=== PATIENT | female | born 1995 | race African-American/Black ===

== ENCOUNTER 2016-08-11 09:08 | Emergency (ER) | payer BC ==
[~2016-08-11] VITALS: Ht 165.1 cm; Wt 49.4 kg
[~2016-08-11 09:08] MED LIST: IBUP1CAP PO
[2016-08-11 09:14] VITALS: TEMP 36.9; Ht 165.1 cm; Wt 49.4 kg
[2016-08-11] MEDS ORDERED: SODIUM CHLORIDE 0.9% 1000ML 1,000 ML IV STA (09:38)
[2016-08-11 09:42] LABS: HEMATOCRIT 37.3 % (37-47); MEAN CELL VOLUME 89.4 fL (80-100); MEAN CORPUSCULAR HEMOGLOBIN 31.2 pg (25-34); MEAN CORPUSCULAR HGB CONC 34.9 g/dl (32-36); MEAN PLATELET VOLUME 10.1 fL (7.4-10.4); PLATELET COUNT 240 K/uL (130-400); RED BLOOD COUNT 4.17 M/uL (4.2-5.4); WHITE BLOOD COUNT 24.07 K/uL (4.8-10.8)
--- NOTE | 2016-08-11 09:53 | EMERGENCY ROOM VISIT NOTE ---
History First contact with patient: :20 Chief Complaint: ABDOMINAL PAIN Stated Complaint: ABD PAIN Nursing Triage Summary: pt. has had abdominal pain for the past 4 days, was sent home from school on thursday, pt. states she passed out and awoke on the kitchen floor, does not know how she had fallen or if she had fallen, has pain on the back of her head, states her abdominal pain is like cramping, denies nausea History of Present Illness The patient is a 20 year old female who presents to the Emergency Room with complaints of abdominal pain. She reports 4 day hx of abdominal pain and diarrhea since day before arrival. Pain is constant 8-9/10. no aggravating factors. She tried Ibuprofen which gave her minimal relief. She also reports dizziness, lightheadedness, chills, increased urinary frequency and urgency, Patient reports episode of LOC day before arrival. She states she went to bathroom and ended up on floor. Fall was unwitnessed. Review of Systems See HPI for pertinent positives & negatives. A total of 10 systems reviewed and were otherwise negative. Past Medical/Surgical History Medical Problems: (1) No Known Active Medical Problems Social History Smoking Status: Never Smoker Current/Historical Medications Scheduled Amoxicillin & Pot Clavulanate (Augmentin 875-125 mg), 1 TAB PO BID Fluticasone Propionate (Nasal) (Flonase Allergy Relief), 1 SPRAY JULIA BID Metronidazole (Flagyl), 500 MG PO TID Allergies Coded Allergies: No Known Allergies (Unverified , 08/11/16) Physical Exam Vital Signs Date Time Temp Pulse Resp B/P Pulse Ox O2 Delivery O2 Flow Rate FiO2 08/11/16 13:32 95 14 114/59 99 Room Air 08/11/16 11:37 97 13 111/73 100 Room Air 08/11/16 10:25 86 12 116/88 100 Room Air 08/11/16 09:51 88 114/71 92 111/72 107 126/73 08/11/16 09:14 36.9 100 16 127/89 100 Room Air Physical Exam GENERAL: alert mild-mod. distress, non-toxic EYE EXAM: normal conjunctiva, PERRL and EOM's grossly intact OROPHARYNX: no exudate, no erythema, lips, buccal mucosa, and tongue normal and mucous membranes are moist NECK: supple, no nuchal rigidity, no adenopathy, non-tender LUNGS: Clear to auscultation. Normal chest wall mechanics HEART: no murmurs, S1 normal and S2 normal ABDOMEN: abdomen soft, diffusely tender, worst in RLQ, Epigastrium , normo- active bowel sounds, no masses, no rebound or guarding. BACK: Back is symmetrical on inspection and there is no deformity, no midline tenderness, no CVA tenderness. SKIN: no rashes and no bruising UPPER EXTREMITIES: upper extremities are grossly normal. LOWER EXTREMITIES: No pitting edema. NEURO EXAM: Normal sensorium, cranial nerves II-XII grossly intact, normal speech, no gross weakness of arms, no gross weakness of legs. Medical Decision & Procedures ER Provider Diagnostic Interpretation: CT OF THE ABDOMEN AND PELVIS WITH CONTRAST CLINICAL HISTORY: Abdominal pain and diarrhea. Syncope. COMPARISON STUDY: None. TECHNIQUE: Following IV administration of 88 mL of Optiray-320, axial images of the abdomen and pelvis were obtained from the lung bases to the proximal femurs. Images were reviewed in the axial, sagittal, and coronal planes. IV contrast was administered without complication. Oral contrast was administered. CT DOSE: 817.16 mGy.cm FINDINGS: No pneumatosis, free air or portal venous gas is present. There are suspected layering stones within the gallbladder. The liver, spleen, adrenal glands and kidneys are normal. There is no evidence for a bowel obstruction. The appendix is normal. There is mild to moderate colonic wall thickening. There is trace fluid within the pelvis. A 3.5 cm right ovarian cyst is present. Skeletal structures are unremarkable. IMPRESSION: 1. Mild to moderate wall thickening of the entire colon consistent with a pancolitis. This is likely infectious in etiology although an inflammatory etiology could appear similar. 2. Normal appendix. 3. 3.5 cm right ovarian cyst. 4. Stones or sludge within the gallbladder. Laboratory Results 08/11/16 09:22 Red Blood Count 4.17, Mean Corpuscular Volume 89.4, Mean Corpuscular Hemoglobin 31.2, Mean Corpuscular Hemoglobin Concent 34.9, Mean Platelet Volume 10.1, Neutrophils (%) (Auto) 88.7, Lymphocytes (%) (Auto) 3.5, Monocytes (%) (Auto) 6.4, Eosinophils (%) (Auto) 0.1, Basophils (%) (Auto) 0.1, Neutrophils # (Auto) 21.34, Lymphocytes # (Auto) 0.85, Monocytes # (Auto) 1.55, Eosinophils # (Auto) 0.02, Basophils # (Auto) 0.02 08/11/16 09:22 Test 08/11/16 09:22 08/11/16 09:40 White Blood Count 24.07 K/uL (4.8-10.8) Red Blood Count 4.17 M/uL (4.2-5.4) Hemoglobin 13.0 g/dL (12.0-16.0) Hematocrit 37.3 % (37-47) Mean Corpuscular Volume 89.4 fL (80-100) Mean Corpuscular Hemoglobin 31.2 pg (25-34) Mean Corpuscular Hemoglobin Concent 34.9 g/dl (32-36) Platelet Count 240 K/uL (130-400) Mean Platelet Volume 10.1 fL (7.4-10.4) Neutrophils (%) (Auto) 88.7 % Lymphocytes (%) (Auto) 3.5 % Monocytes (%) (Auto) 6.4 % Eosinophils (%) (Auto) 0.1 % Basophils (%) (Auto) 0.1 % Neutrophils # (Auto) 21.34 K/uL (1.4-6.5) Lymphocytes # (Auto) 0.85 K/uL (1.2-3.4) Monocytes # (Auto) 1.55 K/uL (0.11-0.59) Eosinophils # (Auto) 0.02 K/uL (0-0.5) Basophils # (Auto) 0.02 K/uL (0-0.2) RDW Standard Deviation 41.5 fL (36.4-46.3) RDW Coefficient of Variation 12.7 % (11.5-14.5) Immature Granulocyte % (Auto) 1.2 % Immature Granulocyte # (Auto) 0.29 K/uL (0.00-0.02) Anion Gap 9.0 mmol/L (3-11) Est Creatinine Clear Calc Drug Dose 91.6 ml/min Estimated GFR () 129.7 Estimated GFR (Non- 111.9 BUN/Creatinine Ratio 14.4 (10-20) Calcium Level 9.1 mg/dl (8.5-10.1) Total Bilirubin 0.5 mg/dl (0.2-1) Direct Bilirubin 0.1 mg/dl (0-0.2) Aspartate Amino Transf (AST/SGOT) 18 U/L (15-37) Alanine Aminotransferase (ALT/SGPT) 21 U/L (12-78) Alkaline Phosphatase 81 U/L (45-117) Total Protein 7.8 gm/dl (6.4-8.2) Albumin 3.7 gm/dl (3.4-5.0) Lipase 71 U/L (73-393) Urine Color YELLOW Urine Appearance CLEAR (CLEAR) Urine pH 6.0 (4.5-7.5) Urine Specific [place] 1.023 (1.000-1.030) Urine Protein 1+ (NEG) Urine Glucose (UA) NEG (NEG) Urine Ketones 1+ (NEG) Urine Occult Blood NEG (NEG) Urine Nitrite NEG (NEG) Urine Bilirubin NEG (NEG) Urine Urobilinogen NEG (NEG) Urine Leukocyte Esterase NEG (NEG) Urine WBC (Auto) 1-5 /hpf (0-5) Urine RBC (Auto) 0-4 /hpf (0-4) Urine Hyaline Casts (Auto) 1-5 /lpf (0-5) Urine Epithelial Cells (Auto) >30 /lpf (0-5) Urine Bacteria (Auto) NEG (NEG) Urine Renal Epithelial Cells /lpf (0-5) Urine Mucus PRESENT (NONE PRSENT) Urine Test NEG (NEG) Date/Time Source Procedure Growth Status 08/11/16 11:00 Stool C.difficile Toxin B Gene (PCR) - Final Positive for C. difficile toxin B gene Complete Medications Administered Medications (Trade) Dose Ordered Sig/David Route Start Time Stop Time Status Last Admin Dose Admin Sodium Chloride (Nss 1000ml) 1,000 ml @ 999 mls/hr Q1H1M STAT IV 08/11/16 09:38 08/11/16 10:38 DC 08/11/16 09:49 999 MLS/HR Medical Decision Differential diagnoses includes but is not limited to gastritis, peptic ulcer disease, GERD, gallbladder disease, pancreatitis, small bowel obstruction, acute coronary syndrome, pericarditis, ischemic bowel, irritable bowel disease, irritable bowel syndrome, appendicitis, diverticulitis, malignancy, hernia, urinary tract infection, torsion, /ectopic if female, perforation, trauma, infectious. 20 yo F p/w epigastric pain x 4 days, diarrhea urinary urgency/frequency and dizziness and episode of LOC, diffuse abdominal tenderness on exam. -CBC: unremarkable -BMP: unremarkable -LFT: unremarkable -UA: negative -Lipase negative -Stool C. Difficile Antigen POSITIVE -CT Abdomen/Pelvis: Mild to moderate wall thickening of the entire colon consistent with a pancolitis. infectious vs. inflammatory etiology -Given 1 L NS -Patient refuses pain medication -Based on patient's presentation of abdominal pain and diarrhea, Hx of recent abx use, positive c diff in stool and CT abdomen consistent with pancolitis, C diff colitis is the most likely etiology. Patient's dizziness/Syncopal episode likely due to Dehydration in the setting of diarrhea. Patient orthostatic pulses changes. Patient was discharged with follow up to PCP and PO Metronidazole 500 mg TD x 14 days. Patient was given first dose of COTA in the ED Impression Primary Impression: Acute abdominal pain Departure Information Dispostion Home / Self-Care Condition GOOD Prescriptions Metronidazole (Flagyl) 250 Mg Tab 500 MG PO TID for 14 Days, #84 TAB Prov: Alfred Sanabria, 08/11/16 Referrals No Doctor, Assigned (PCP) Patient Instructions My [facility] Resident Tracking Resident Involvement: Resident Care Provided Care Provided: Adult ED
[2016-08-11 09:59] LABS: BUN/CREATININE RATIO 14.4 (10-20); CALCIUM 9.1 mg/dl (8.5-10.1); CREATININE 0.77 mg/dl (0.60-1.20); POTASSIUM 3.7 mmol/L (3.5-5.1)
[2016-08-11 10:05] LABS: URINE APPEARANCE CLEAR (CLEAR); URINE BILIRUBIN NEG (NEG); URINE COLOR YELLOW; URINE EPITHELIAL CELL AUTO >30 /lpf (0-5); URINE NITRITE NEG (NEG); URINE SPECIFIC GRAVITY 1.023 (1.000-1.030); UROBILINOGEN NEG (NEG); ZZUR CULT IF INDIC CLEAN CATCH NO
[2016-08-11 10:06] LABS: MANUAL MICROSCOPIC REQUIRED? NO; REVIEW REQ? YES
[2016-08-11 10:06] LABS: BASO % 0.1 %; BASO ABS # 0.02 K/uL (0-0.2); COMPLETE YES; EOS % 0.1 %; IG% 1.2 %; LYMPH % 3.5 %; LYMPH ABS # 0.85 K/uL (1.2-3.4); MONO % 6.4 %; NEUT % 88.7 %
[2016-08-11] MEDS ORDERED: AMOX875T PO (10:15)
[2016-08-11] MEDS ORDERED: FLUT0.15 NAE (10:15)
[2016-08-11 10:19] LABS: URINE MUCUS PRESENT (NONE PRSENT)
--- NOTE | 2016-08-11 12:48 | DIAGNOSTIC IMAGING REPORT ---
CT OF THE HEAD WITHOUT CONTRAST CLINICAL HISTORY: Syncope. Headache. COMPARISON STUDY: No previous studies for comparison. CT DOSE: TECHNIQUE: Helical axial images of the head were obtained without IV contrast. Automated exposure control was utilized for the study. FINDINGS: No acute intracranial hemorrhage, midline shift or mass effect is present. Ventricular system is normal. Basilar cisterns are patent. There are no extra-axial collections. Pulido-white differentiation is maintained. There is no calvarial fracture. IMPRESSION: 1. No acute intracranial findings. 2. No calvarial fracture. Electronically signed by: Parth Bazzi M.D. 08/11/2016 12:46 PM Dictated Date/Time: 08/11/2016 12:44 PM
--- NOTE | 2016-08-11 13:40 | DIAGNOSTIC IMAGING REPORT ---
CT OF THE ABDOMEN AND PELVIS WITH CONTRAST CLINICAL HISTORY: Abdominal pain and diarrhea. Syncope. COMPARISON STUDY: None. TECHNIQUE: Following IV administration of 88 mL of Optiray-320, axial images of the abdomen and pelvis were obtained from the lung bases to the proximal femurs. Images were reviewed in the axial, sagittal, and coronal planes. IV contrast was administered without complication. Oral contrast was administered. CT DOSE: 817.16 mGy.cm FINDINGS: No pneumatosis, free air or portal venous gas is present. There are suspected layering stones within the gallbladder. The liver, spleen, adrenal glands and kidneys are normal. There is no evidence for a bowel obstruction. The appendix is normal. There is mild to moderate colonic wall thickening. There is trace fluid within the pelvis. A 3.5 cm right ovarian cyst is present. Skeletal structures are unremarkable. IMPRESSION: 1. Mild to moderate wall thickening of the entire colon consistent with a pancolitis. This is likely infectious in etiology although an inflammatory etiology could appear similar. 2. Normal appendix. 3. 3.5 cm right ovarian cyst. 4. Stones or sludge within the gallbladder. Electronically signed by: Parth Bazzi M.D. 08/11/2016 1:38 PM Dictated Date/Time: 08/11/2016 1:32 PM
[2016-08-11] MEDS ORDERED: METRONIDAZOLE 250 MG TAB PO STA (13:44)
[2016-08-11] MEDS ORDERED: METR1TAB4 PO (13:44)
[2016-08-11 14:35] VITALS: BP 114/67; PULSE 104; O2SAT 99
--- NOTE | 2016-08-11 15:46 | EMERGENCY ROOM VISIT NOTE ---
History Report prepared by Mahnaz: Sumanth Simon Under the Supervision of: Dr. Alfred Sanabria D.O. First contact with patient: 09:19 Chief Complaint: ABDOMINAL PAIN Stated Complaint: ABD PAIN Nursing Triage Summary: pt. has had abdominal pain for the past 4 days, was sent home from school on thursday, pt. states she passed out and awoke on the kitchen floor, does not know how she had fallen or if she had fallen, has pain on the back of her head, states her abdominal pain is like cramping, denies nausea History of Present Illness The patient is a 20 year old female who presents to the Emergency Room with complaints of persistent abdominal discomfort that started 3 days ago. The discomfort is mostly in the middle of her upper abdomen. The patient notes at first she had a headache and felt dizzy before her stomach started to hurt. She also complains of diarrhea that started yesterday and notes multiple episodes. The patient had one episode of passing out yesterday. She was going to the restroom, felt like the room was spinning, and woke up on the floor. She notes that she thinks she hit her head when she fell down. The patient also complained of some shortness of breath this morning that is somewhat resolved upon her arrival at the ED. The patient denies swelling in her calves, recent surgeries, or recent travels. Pt denies change in vision, fevers, chest pain, nausea, vomiting, pain with urination, blood in her stool, and melena. She has recently been on Augmentin. Source of History: patient Onset: 3 days ago Position: abdomen Timing: other (persistent) Associated Symptoms: + LOC, + SOB, + diarrhea, + headache, No chest pain, No fevers, No melena, No nausea, No urinary symptoms, No vomiting Note: Other associated symptoms: dizzy Denies: changes in vision, swelling in her calves, recent travel/ surgery, blood in her stool Review of Systems See HPI for pertinent positives & negatives. A total of 10 systems reviewed and were otherwise negative. Past Medical & Surgical Medical Problems: (1) No Known Active Medical Problems Family History No pertinent family history Social History Smoking Status: Never Smoker Housing Status: lives with roommate Occupation Status: student Current/Historical Medications Scheduled Amoxicillin & Pot Clavulanate (Augmentin 875-125 mg), 1 TAB PO BID Fluticasone Propionate (Nasal) (Flonase Allergy Relief), 1 SPRAY JULIA BID Metronidazole (Flagyl), 500 MG PO TID Allergies Coded Allergies: No Known Allergies (Unverified , 08/11/16) Physical Exam Vital Signs Date Time Temp Pulse Resp B/P Pulse Ox O2 Delivery O2 Flow Rate FiO2 08/11/16 14:35 104 13 114/67 99 08/11/16 13:32 95 14 114/59 99 Room Air 08/11/16 11:37 97 13 111/73 100 Room Air 08/11/16 10:25 86 12 116/88 100 Room Air 08/11/16 09:51 88 114/71 92 111/72 107 126/73 08/11/16 09:14 36.9 100 16 127/89 100 Room Air Physical Exam GENERAL: sitting up in bed, alert, well appearing, well nourished, no distress, non-toxic HEAD: Minimal tenderness to occiput. EYE EXAM: normal conjunctiva, PERRL and EOM's grossly intact OROPHARYNX: no exudate, no erythema, lips, buccal mucosa, and tongue normal and mucous membranes are moist NECK: supple, no nuchal rigidity, no adenopathy, non-tender LUNGS: Clear to auscultation. Normal chest wall mechanics HEART: no murmurs, S1 normal and S2 normal ABDOMEN: abdomen soft, diffusely tender to palpation, normo-active bowel sounds , no masses, no rebound or guarding. BACK: Back is symmetrical on inspection and there is no deformity, no midline tenderness, no CVA tenderness. SKIN: no rashes and no bruising UPPER EXTREMITIES: upper extremities are grossly normal. LOWER EXTREMITIES: No pitting edema. NEURO EXAM: Normal sensorium, cranial nerves II-XII intact, normal speech, no weakness of arms, no weakness of legs. No drift. Finger to nose intact. Gross sensation intact. Medical Decision & Procedures ER Provider Diagnostic Interpretation: Radiology results as stated below per my review and the radiologist's interpretation: CT OF THE ABDOMEN AND PELVIS WITH CONTRAST CLINICAL HISTORY: Abdominal pain and diarrhea. Syncope. COMPARISON STUDY: None. TECHNIQUE: Following IV administration of 88 mL of Optiray-320, axial images of the abdomen and pelvis were obtained from the lung bases to the proximal femurs. Images were reviewed in the axial, sagittal, and coronal planes. IV contrast was administered without complication. Oral contrast was administered. CT DOSE: 817.16 mGy.cm FINDINGS: No pneumatosis, free air or portal venous gas is present. There are suspected layering stones within the gallbladder. The liver, spleen, adrenal glands and kidneys are normal. There is no evidence for a bowel obstruction. The appendix is normal. There is mild to moderate colonic wall thickening. There is trace fluid within the pelvis. A 3.5 cm right ovarian cyst is present. Skeletal structures are unremarkable. IMPRESSION: 1. Mild to moderate wall thickening of the entire colon consistent with a pancolitis. This is likely infectious in etiology although an inflammatory etiology could appear similar. 2. Normal appendix. 3. 3.5 cm right ovarian cyst. 4. Stones or sludge within the gallbladder. Electronically signed by: Parth Bazzi M.D. 08/11/2016 1:38 PM Dictated Date/Time: 08/11/2016 1:[address] OF THE HEAD WITHOUT CONTRAST CLINICAL HISTORY: Syncope. Headache. COMPARISON STUDY: No previous studies for comparison. CT DOSE: TECHNIQUE: Helical axial images of the head were obtained without IV contrast. Automated exposure control was utilized for the study. FINDINGS: No acute intracranial hemorrhage, midline shift or mass effect is present. Ventricular system is normal. Basilar cisterns are patent. There are no extra-axial collections. Pulido-white differentiation is maintained. There is no calvarial fracture. IMPRESSION: 1. No acute intracranial findings. 2. No calvarial fracture. Electronically signed by: Parth Bazzi M.D. 08/11/2016 12:46 PM Dictated Date/Time: 08/11/2016 12:44 PM Laboratory Results 08/11/16 09:22 Red Blood Count 4.17, Mean Corpuscular Volume 89.4, Mean Corpuscular Hemoglobin 31.2, Mean Corpuscular Hemoglobin Concent 34.9, Mean Platelet Volume 10.1, Neutrophils (%) (Auto) 88.7, Lymphocytes (%) (Auto) 3.5, Monocytes (%) (Auto) 6.4, Eosinophils (%) (Auto) 0.1, Basophils (%) (Auto) 0.1, Neutrophils # (Auto) 21.34, Lymphocytes # (Auto) 0.85, Monocytes # (Auto) 1.55, Eosinophils # (Auto) 0.02, Basophils # (Auto) 0.02 08/11/16 09:22 Test 08/11/16 09:22 08/11/16 09:40 White Blood Count 24.07 K/uL (4.8-10.8) Red Blood Count 4.17 M/uL (4.2-5.4) Hemoglobin 13.0 g/dL (12.0-16.0) Hematocrit 37.3 % (37-47) Mean Corpuscular Volume 89.4 fL (80-100) Mean Corpuscular Hemoglobin 31.2 pg (25-34) Mean Corpuscular Hemoglobin Concent 34.9 g/dl (32-36) Platelet Count 240 K/uL (130-400) Mean Platelet Volume 10.1 fL (7.4-10.4) Neutrophils (%) (Auto) 88.7 % Lymphocytes (%) (Auto) 3.5 % Monocytes (%) (Auto) 6.4 % Eosinophils (%) (Auto) 0.1 % Basophils (%) (Auto) 0.1 % Neutrophils # (Auto) 21.34 K/uL (1.4-6.5) Lymphocytes # (Auto) 0.85 K/uL (1.2-3.4) Monocytes # (Auto) 1.55 K/uL (0.11-0.59) Eosinophils # (Auto) 0.02 K/uL (0-0.5) Basophils # (Auto) 0.02 K/uL (0-0.2) RDW Standard Deviation 41.5 fL (36.4-46.3) RDW Coefficient of Variation 12.7 % (11.5-14.5) Immature Granulocyte % (Auto) 1.2 % Immature Granulocyte # (Auto) 0.29 K/uL (0.00-0.02) Anion Gap 9.0 mmol/L (3-11) Est Creatinine Clear Calc Drug Dose 91.6 ml/min Estimated GFR () 129.7 Estimated GFR (Non- 111.9 BUN/Creatinine Ratio 14.4 (10-20) Calcium Level 9.1 mg/dl (8.5-10.1) Total Bilirubin 0.5 mg/dl (0.2-1) Direct Bilirubin 0.1 mg/dl (0-0.2) Aspartate Amino Transf (AST/SGOT) 18 U/L (15-37) Alanine Aminotransferase (ALT/SGPT) 21 U/L (12-78) Alkaline Phosphatase 81 U/L (45-117) Total Protein 7.8 gm/dl (6.4-8.2) Albumin 3.7 gm/dl (3.4-5.0) Lipase 71 U/L (73-393) Urine Color YELLOW Urine Appearance CLEAR (CLEAR) Urine pH 6.0 (4.5-7.5) Urine Specific [place] 1.023 (1.000-1.030) Urine Protein 1+ (NEG) Urine Glucose (UA) NEG (NEG) Urine Ketones 1+ (NEG) Urine Occult Blood NEG (NEG) Urine Nitrite NEG (NEG) Urine Bilirubin NEG (NEG) Urine Urobilinogen NEG (NEG) Urine Leukocyte Esterase NEG (NEG) Urine WBC (Auto) 1-5 /hpf (0-5) Urine RBC (Auto) 0-4 /hpf (0-4) Urine Hyaline Casts (Auto) 1-5 /lpf (0-5) Urine Epithelial Cells (Auto) >30 /lpf (0-5) Urine Bacteria (Auto) NEG (NEG) Urine Renal Epithelial Cells /lpf (0-5) Urine Mucus PRESENT (NONE PRSENT) Urine Test NEG (NEG) Date/Time Source Procedure Growth Status 08/11/16 11:00 Stool C.difficile Toxin B Gene (PCR) - Final Positive for C. difficile toxin B gene Complete Laboratory results per my review. Medications Administered Medications (Trade) Dose Ordered Sig/David Route Start Time Stop Time Status Last Admin Dose Admin Sodium Chloride (Nss 1000ml) 1,000 ml @ 999 mls/hr Q1H1M STAT IV 08/11/16 09:38 08/11/16 10:38 DC 08/11/16 09:49 999 MLS/HR Metronidazole (Flagyl Tab) 500 mg NOW STAT PO 08/11/16 13:44 08/11/16 13:46 DC 08/11/16 14:35 500 MG ED Course ED COURSE: Vital signs were reviewed and showed tachycardic The patients medical record was reviewed The above diagnostic studies were performed and reviewed. ED treatments and interventions as stated above. 0932: The patient was evaluated in room A12. A complete history and physical examination was performed. 0938: Ordered NSS 1000 ml @ 999 mls/hr IV. 1052: At this time, I reevaluated the patient and she was feeling better. She still declines pain medications at this time. 1316: At this time, I reevaluated the patient and updated her on findings. She is waiting for a CAT scan. 1344: Ordered Flagyl Tab 500 mg PO. 1431: Upon reevaluation, the patient is resting comfortably.I discussed my findings with the patient and she understands and agrees with the treatment plan. Based on the patients age, coexisting illnesses, exam and lab findings the decision to treat as an outpatient was made. The patient remained stable while under my care. The patient appeared well at the time of discharge. Medical Decision Differential diagnoses includes but is not limited to gastritis, peptic ulcer disease, GERD, gallbladder disease, pancreatitis, small bowel obstruction, acute coronary syndrome, pericarditis, ischemic bowel, irritable bowel disease, irritable bowel syndrome, appendicitis, diverticulitis, malignancy, hernia, urinary tract infection, torsion, [/ectopic (if female)], perforation, trauma, infectious. Patient is a 20-year-old female who presents the ER for abdominal pain 9 out of 10 which is been constant associated with dizziness and persistent diarrhea. Abdominal exam is fairly diffusely tender. Labs are unremarkable. Labs show a leukocytosis of 24,000. BMP along with LFTs, bilirubin and lipase was unremarkable. UA was unremarkable. She was negative. C. difficile was positive. She is given dose of Flagyl along with fluids. She was updated bedside. She was seen in combination with the resident but independently. CT of the abdomen and pelvis shows diffuse colitis consistent with C. difficile. CT of her head was negative. Patient was placed on Flagyl and discharged follow -up with her primary care doctor/S. I do favor her previous syncopal episode was likely secondary to dehydration or vasovagal. She has no chest pain or shortness breath. Discussed with Pt concerning signs and symptoms to watch out for. Pt was instructed to follow up with their PCP and discussed with the patient their option to return to the ED at anytime for persistent or worsening symptoms. The appropriate anticipatory guidance and out-patient management, including indications for return to the emergency department, were explained at length to the patient and understood. Impression Primary Impression: C. difficile colitis Additional Impressions: Acute abdominal pain Leukocytosis Scribe Attestation The scribe's documentation has been prepared under my direction and personally reviewed by me in its entirety. I confirm that the note above accurately reflects all work, treatment, procedures, and medical decision making performed by me. Departure Information Dispostion Home / Self-Care Prescriptions Metronidazole (Flagyl) 250 Mg Tab 500 MG PO TID for 14 Days, #84 TAB Prov: Alfred Sanabria, DO 08/11/16 Referrals No Doctor, Assigned (PCP) Forms HOME CARE DOCUMENTATION FORM, IMPORTANT VISIT INFORMATION Patient Instructions Clostridium Difficile Infec, My [facility] Additional Instructions Please follow up with your primary care doctor with in the next 24 hours. Any worsening of your symptoms, please return to the ED immediately. This includes blood in your diarrhea, passing out, chest pain, shortness breath, or any other concerning signs or symptoms from your standpoint. Please take antibiotic as prescribed. Problem Qualifiers
== END 2016-08-11 14:37 | disposition home or self-care (01) ==
LOC: EDBD 09:08 → MERGE 09:12 → C.EDA 09:12
DX: R10.9 Unspecified abdominal pain (principal); R19.7 Diarrhea, unspecified; R55 Syncope and collapse

== ENCOUNTER 2017-01-19 11:31 | Emergency (ER) | payer BC ==
[~2017-01-19] VITALS: Ht 165.1 cm; Wt 47.2 kg
[~2017-01-19 11:31] MED LIST changes: +AMOX875T PO; +FLUT0.15 NAE
[2017-01-19 11:40] VITALS: TEMP 36.8; Ht 165.1 cm; Wt 47.2 kg
[2017-01-19] MEDS ORDERED: MoRPHine SULFATE 4 MG/ML 1 ML CARP\\VIAL IV STA (12:18)
[2017-01-19] MEDS ORDERED: ONDANSETRON INJ 2 MG/ML 2 ML VIAL IV STA (12:18)
[2017-01-19] MEDS ORDERED: SODIUM CHLORIDE 0.9% 1000ML 1,000 ML IV STA (12:18)
[2017-01-19] MEDS ORDERED: OPTIRAY 320 IV PRN (12:30)
[2017-01-19 12:36] LABS: URINE APPEARANCE CLEAR (CLEAR); URINE BILIRUBIN NEG (NEG); URINE COLOR YELLOW; URINE NITRITE NEG (NEG); URINE PH 5.5 (4.5-7.5); URINE SPECIFIC GRAVITY 1.022 (1.000-1.030); UROBILINOGEN NEG (NEG)
[2017-01-19 12:37] LABS: MANUAL MICROSCOPIC REQUIRED? NO; REVIEW REQ? NO
[2017-01-19 13:33] LABS: BASO % 0.5 %; BASO ABS # 0.04 K/uL (0-0.2); COMPLETE YES; EOS % 3.9 %; HEMATOCRIT 37.5 % (37-47); IG% 0.1 %; LYMPH ABS # 2.53 K/uL (1.2-3.4); MEAN CELL VOLUME 89.3 fL (80-100); MEAN CORPUSCULAR HGB CONC 34.7 g/dl (32-36); MEAN PLATELET VOLUME 10.1 fL (7.4-10.4); MONO % 7.5 %; PLATELET COUNT 264 K/uL (130-400); WHITE BLOOD COUNT 7.91 K/uL (4.8-10.8)
[2017-01-19 13:53] LABS: ALKALINE PHOSPHATASE 60 U/L (45-117); ALT/SGPT 17 U/L (12-78); AST/SGOT 18 U/L (15-37)
[2017-01-19 14:32] LABS: BLOOD UREA NITROGEN 12 mg/dl (7-18); BUN/CREATININE RATIO 19.8 (10-20); CALCIUM 9.6 mg/dl (8.5-10.1); CARBON DIOXIDE 24 mmol/L (21-32); CHLORIDE 105 mmol/L (98-107); CREATININE 0.61 mg/dl (0.60-1.20); GLUCOSE 77 mg/dl (70-99); POTASSIUM 3.5 mmol/L (3.5-5.1); SODIUM 138 mmol/L (136-145)
--- NOTE | 2017-01-19 15:19 | DIAGNOSTIC IMAGING REPORT ---
(CHEST FOR PE) ANGIO WITH CLINICAL HISTORY: 21 years-old Female presenting with right chest and abdominal pain status post cholecystectomy.. TECHNIQUE: Multidetector CT angiography of the chest was performed after administration of intravenous contrast. 3-D volumetric and/or maximum intensity projection (MIP) images were subsequently reconstructed for review. IV contrast: 94 mm of Optiray 320. A dose lowering technique was used consistent with the principles of ALARA (as low as reasonably achievable). COMPARISON: None. CT DOSE (mGy.cm): The estimated cumulative dose is 484.78 mGycm. FINDINGS: Relief Salesperson topogram: Unremarkable. Pulmonary vasculature: The study is suboptimal for the assessment of pulmonary embolus timing of the contrast bolus. No central filling defect within the main and lobar pulmonary arteries. Main pulmonary artery is not enlarged. No flattening of the interventricular septum. No intracardiac intracardiac filling defect. No reflux of contrast into the hepatic veins. Remaining chest: On soft tissue windows, residual thymic tissue noted. Normal thyroid. No axillary, supraclavicular, hilar, or mediastinal lymphadenopathy. Normal aorta. Normal heart size. No pericardial or pleural effusion. Moderate stool burden noted in the partially visualized colon. Cholecystectomy clips present. On lung windows, no focal infiltrate or nodule. Airways patent. On bone windows, normal osseous structures. IMPRESSION: 1. No evidence of central pulmonary embolus allowing for suboptimal timing of the contrast bolus. No acute intrathoracic pathology. Electronically signed by: Tripp Rucker M.D. 01/19/2017 3:18 PM Dictated Date/Time: 01/19/2017 3:14 PM
--- NOTE | 2017-01-19 15:25 | DIAGNOSTIC IMAGING REPORT ---
CT OF THE ABDOMEN AND PELVIS WITH CONTRAST CLINICAL HISTORY: Right-sided chest and abdominal pain status post recent cholecystectomy. COMPARISON STUDY: CT of the abdomen and pelvis August 11, 2016. TECHNIQUE: Following IV administration of 94 mL of Optiray-320, axial images of the abdomen and pelvis were obtained from the lung bases to the proximal femurs. Images were reviewed in the axial, sagittal, and coronal planes. IV contrast was administered without complication. A dose lowering technique was utilized adhering to the principles of ALARA. FINDINGS: The chest CT will be reported separately. No pneumatosis, free air or portal venous gas is present. There is no biliary ductal dilatation status post cholecystectomy. There is no operative bed fluid collection. The operative bed is unremarkable. There is no evidence for a bowel obstruction. A small amount of fluid within the pelvis is noted. Note is made of a 2.8 cm left ovarian cyst. Caliber and wall thickness of small and large bowel are normal. Major vasculature of the abdomen and pelvis is patent. No suspicious osseous lesions are present. There is no rim-enhancing fluid collection to suggest an abscess. Visualized portions of the appendix are normal. IMPRESSION: 1. No unexpected findings following cholecystectomy. Minimal fluid within the operative bed is within normal limits in the early postoperative setting. 2. No bowel obstruction. 3. Small amount of fluid within the pelvis. 4. 2.8 cm left ovarian cyst. Electronically signed by: Parth Bazzi M.D. 01/19/2017 3:24 PM Dictated Date/Time: 01/19/2017 3:18 PM
[2017-01-19] MEDS ORDERED: LIDOCAINE HCL 2% VISC SOLN 20 ML UDC PO STA (15:32)
[2017-01-19] MEDS ORDERED: ALUMINUM/MAGNESIUM SUSP 30 ML UDC PO STA (15:32)
--- NOTE | 2017-01-19 16:38 | DIAGNOSTIC IMAGING REPORT ---
ULTRASOUND BILATERAL LOWER EXTREMITY VENOUS CLINICAL HISTORY: Recent surgery. Generalized abdominal pain. Clinical concern for deep venous thrombosis. COMPARISON STUDY: No priors. TECHNIQUE: Real-time, grayscale, and color Doppler sonography of the deep veins of the right and left lower extremity was performed from the inguinal crease to the calf. Compression and augmentation were utilized. FINDINGS: There is no sonographic evidence of deep venous thrombosis identified in the right or left lower extremity. The common femoral, superficial femoral, and popliteal veins are patent and normally compressible bilaterally. The greater saphenous vein and the profunda femoris vein at the junction with the common femoral vein are clear in both legs. The visualized calf veins are patent bilaterally. IMPRESSION: There is no sonographic evidence of deep venous thrombosis identified in the right or left lower extremity. Electronically signed by: Zach Regalado M.D. 01/19/2017 4:36 PM Dictated Date/Time: 01/19/2017 4:36 PM
[2017-01-19 16:53] VITALS: BP 112/78; PULSE 58; O2SAT 98
[2017-01-19] MEDS ORDERED: OMEP20CA9 PO (16:58)
--- NOTE | 2017-01-19 17:37 | EMERGENCY ROOM VISIT NOTE ---
History Report prepared by Mahnaz: Gary Tanner Under the Supervision of: Dr. Terrance Das M.D. First contact with patient: 12:09 Chief Complaint: ABDOMINAL PAIN Stated Complaint: HAVING PAIN WHERE THEY DID W/GALLBLADDER ON 01/06 Nursing Triage Summary: States having right upper quadrant abd pain, recent cholecystectomy per pt. also having constipation. History of Present Illness The patient is a 21 year old female who presents to the Emergency Room with complaints of sharp RUQ abdominal pain that began last night. She rates her current pain a 9/10 in severity. She received a cholecystectomy on January 06. She did not have any complications or problems until yesterday. At this time, she began to experience this sharp abdominal pain in the area of her surgery. She also states that she cannot take a deep breath or move her torso without the pain exacerbating. She describes her legs as being "heavy and sleepy " with some swelling noted for the past week. She denies any leg pain. She does not use tobacco products or take control. She denies any past medical history of blood clots in her legs or lungs. She denies any fevers, diarrhea, vomiting, or trouble with urination. She has been experiencing shortness of breath, heart palpitations, and constipation. She states that she has been eating, but her last bowel movement was 3 weeks ago. It has been 18 days since she has had her period, but she has not been sexually active for years and states she is not . Source of History: patient Onset: yesterday Position: abdomen (RUQ) Symptom Intensity: 9/10 Quality: sharp Timing: constant Modifying Factors (Worsening): breathing, movement Associated Symptoms: + SOB, No fevers, No vomiting, No diarrhea, No urinary symptoms Note: She is experiencing heart palpitations, constipation, and bilateral lower extremity edema with a feeling of "sleepiness" to her legs as well. She denies any leg pain. Review of Systems See HPI for pertinent positives & negatives. A total of 10 systems reviewed and were otherwise negative. Past Medical & Surgical Medical Problems: (1) No Known Active Medical Problems Family History No pertinent family history No significant family history Social History Smoking Status: Never Smoker Alcohol Use: none Drug Use: none Marital Status: single Housing Status: lives with roommate Occupation Status: student Current/Historical Medications Scheduled Omeprazole (Prilosec), 1 CAP PO DAILY Scheduled PRN Ibuprofen (Midol), 200 MG PO UD PRN for Abdominal Cramping Allergies Coded Allergies: No Known Allergies (Unverified , 08/12/16) Physical Exam Vital Signs Date Time Temp Pulse Resp B/P (MAP) Pulse Ox O2 Delivery O2 Flow Rate FiO2 01/19/17 16:53 58 12 112/78 98 Room Air 01/19/17 15:22 62 12 132/75 98 Room Air 01/19/17 13:34 70 01/19/17 13:30 70 14 127/73 99 Room Air 01/19/17 11:40 36.8 86 16 129/85 93 Room Air Physical Exam Constitutional: Vital signs reviewed. Eyes: Pupils are equal round reactive to light. Conjunctiva are noninjected. ENT: Pharynx is clear without erythema or exudate. Mucous membranes are moist. Neck supple without meningeal signs. Respiratory: Clear to auscultation bilaterally. Breath sounds are equal bilaterally. Cardiovascular: Tachycardic rate with a regular rhythm. No rubs or gallops. GI: Soft, nondistended. RUQ tenderness to palpation with guarding. Bowel sounds are present. Musculoskeletal: Right CVA tenderness to palpation. No peripheral edema. No lower extremity tenderness. Integumentary: No cyanosis. Neurological: The patient is awake and alert. No focal deficits. Psychiatric: Normal affect. Medical Decision & Procedures ER Provider Diagnostic Interpretation: Radiology results as stated below per my review and the radiologist's interpretation: (CHEST FOR PE) ANGIO WITH CLINICAL HISTORY: 21 years-old Female presenting with right chest and abdominal pain status post cholecystectomy.. TECHNIQUE: Multidetector CT angiography of the chest was performed after administration of intravenous contrast. 3-D volumetric and/or maximum intensity projection (MIP) images were subsequently reconstructed for review. IV contrast: 94 mm of Optiray 320. A dose lowering technique was used consistent with the principles of ALARA (as low as reasonably achievable). COMPARISON: None. CT DOSE (mGy.cm): The estimated cumulative dose is 484.78 mGycm. FINDINGS: Canoe Builder topogram: Unremarkable. Pulmonary vasculature: The study is suboptimal for the assessment of pulmonary embolus timing of the contrast bolus. No central filling defect within the main and lobar pulmonary arteries. Main pulmonary artery is not enlarged. No flattening of the interventricular septum. No intracardiac intracardiac filling defect. No reflux of contrast into the hepatic veins. Remaining chest: On soft tissue windows, residual thymic tissue noted. Normal thyroid. No axillary, supraclavicular, hilar, or mediastinal lymphadenopathy. Normal aorta. Normal heart size. No pericardial or pleural effusion. Moderate stool burden noted in the partially visualized colon. Cholecystectomy clips present. On lung windows, no focal infiltrate or nodule. Airways patent. On bone windows, normal osseous structures. IMPRESSION: 1. No evidence of central pulmonary embolus allowing for suboptimal timing of the contrast bolus. No acute intrathoracic pathology. Electronically signed by: Tripp Rucker M.D. 01/19/2017 3:18 PM Dictated Date/Time: 01/19/2017 3:[address] OF THE ABDOMEN AND PELVIS WITH CONTRAST CLINICAL HISTORY: Right-sided chest and abdominal pain status post recent cholecystectomy. COMPARISON STUDY: CT of the abdomen and pelvis August 11, 2016. TECHNIQUE: Following IV administration of 94 mL of Optiray-320, axial images of the abdomen and pelvis were obtained from the lung bases to the proximal femurs. Images were reviewed in the axial, sagittal, and coronal planes. IV contrast was administered without complication. A dose lowering technique was utilized adhering to the principles of ALARA. FINDINGS: The chest CT will be reported separately. No pneumatosis, free air or portal venous gas is present. There is no biliary ductal dilatation status post cholecystectomy. There is no operative bed fluid collection. The operative bed is unremarkable. There is no evidence for a bowel obstruction. A small amount of fluid within the pelvis is noted. Note is made of a 2.8 cm left ovarian cyst. Caliber and wall thickness of small and large bowel are normal. Major vasculature of the abdomen and pelvis is patent. No suspicious osseous lesions are present. There is no rim-enhancing fluid collection to suggest an abscess. Visualized portions of the appendix are normal. IMPRESSION: 1. No unexpected findings following cholecystectomy. Minimal fluid within the operative bed is within normal limits in the early postoperative setting. 2. No bowel obstruction. 3. Small amount of fluid within the pelvis. 4. 2.8 cm left ovarian cyst. Electronically signed by: Parth Bazzi M.D. 01/19/2017 3:24 PM Dictated Date/Time: 01/19/2017 3:18 PM ULTRASOUND BILATERAL LOWER EXTREMITY VENOUS CLINICAL HISTORY: Recent surgery. Generalized abdominal pain. Clinical concern for deep venous thrombosis. COMPARISON STUDY: No priors. TECHNIQUE: Real-time, grayscale, and color Doppler sonography of the deep veins of the right and left lower extremity was performed from the inguinal crease to the calf. Compression and augmentation were utilized. FINDINGS: There is no sonographic evidence of deep venous thrombosis identified in the right or left lower extremity. The common femoral, superficial femoral, and popliteal veins are patent and normally compressible bilaterally. The greater saphenous vein and the profunda femoris vein at the junction with the common femoral vein are clear in both legs. The visualized calf veins are patent bilaterally. IMPRESSION: There is no sonographic evidence of deep venous thrombosis identified in the right or left lower extremity. Electronically signed by: Zach Regalado M.D. 01/19/2017 4:36 PM Dictated Date/Time: 01/19/2017 4:36 PM Laboratory Results 01/19/17 13:17 Red Blood Count 4.20, Mean Corpuscular Volume 89.3, Mean Corpuscular Hemoglobin 31.0, Mean Corpuscular Hemoglobin Concent 34.7, Mean Platelet Volume 10.1, Neutrophils (%) (Auto) 56.0, Lymphocytes (%) (Auto) 32.0, Monocytes (%) (Auto) 7.5, Eosinophils (%) (Auto) 3.9, Basophils (%) (Auto) 0.5, Neutrophils # (Auto) 4.43, Lymphocytes # (Auto) 2.53, Monocytes # (Auto) 0.59, Eosinophils # (Auto) 0.31, Basophils # (Auto) 0.04 01/19/17 13:17 Test 01/19/17 12:09 01/19/17 12:18 01/19/17 13:17 Urine Color YELLOW Urine Appearance CLEAR (CLEAR) Urine pH 5.5 (4.5-7.5) Urine Specific [place] 1.022 (1.000-1.030) Urine Protein NEG (NEG) Urine Glucose (UA) NEG (NEG) Urine Ketones TRACE (NEG) Urine Occult Blood NEG (NEG) Urine Nitrite NEG (NEG) Urine Bilirubin NEG (NEG) Urine Urobilinogen NEG (NEG) Urine Leukocyte Esterase NEG (NEG) Urine Test NEG (NEG) White Blood Count 7.91 K/uL (4.8-10.8) Red Blood Count 4.20 M/uL (4.2-5.4) Hemoglobin 13.0 g/dL (12.0-16.0) Hematocrit 37.5 % (37-47) Mean Corpuscular Volume 89.3 fL (80-100) Mean Corpuscular Hemoglobin 31.0 pg (25-34) Mean Corpuscular Hemoglobin Concent 34.7 g/dl (32-36) Platelet Count 264 K/uL (130-400) Mean Platelet Volume 10.1 fL (7.4-10.4) Neutrophils (%) (Auto) 56.0 % Lymphocytes (%) (Auto) 32.0 % Monocytes (%) (Auto) 7.5 % Eosinophils (%) (Auto) 3.9 % Basophils (%) (Auto) 0.5 % Neutrophils # (Auto) 4.43 K/uL (1.4-6.5) Lymphocytes # (Auto) 2.53 K/uL (1.2-3.4) Monocytes # (Auto) 0.59 K/uL (0.11-0.59) Eosinophils # (Auto) 0.31 K/uL (0-0.5) Basophils # (Auto) 0.04 K/uL (0-0.2) RDW Standard Deviation 41.2 fL (36.4-46.3) RDW Coefficient of Variation 12.8 % (11.5-14.5) Immature Granulocyte % (Auto) 0.1 % Immature Granulocyte # (Auto) 0.01 K/uL (0.00-0.02) Anion Gap 9.0 mmol/L (3-11) Est Creatinine Clear Calc Drug Dose 109.6 ml/min Estimated GFR () > 150.0 Estimated GFR (Non- 130.5 BUN/Creatinine Ratio 19.8 (10-20) Calcium Level 9.6 mg/dl (8.5-10.1) Total Bilirubin 0.5 mg/dl (0.2-1) Direct Bilirubin < 0.1 mg/dl (0-0.2) Aspartate Amino Transf (AST/SGOT) 18 U/L (15-37) Alanine Aminotransferase (ALT/SGPT) 17 U/L (12-78) Alkaline Phosphatase 60 U/L (45-117) Total Protein 7.7 gm/dl (6.4-8.2) Albumin 4.3 gm/dl (3.4-5.0) Lipase 158 U/L (73-393) Laboratory results as reviewed by me. Medications Administered Medications (Trade) Dose Ordered Sig/David Route Start Time Stop Time Status Last Admin Dose Admin Morphine Sulfate (MoRPHine SULFATE INJ) 4 mg ONE STAT IV 01/19/17 12:18 01/19/17 12:20 DC 01/19/17 13:25 4 MG Ondansetron HCl (Zofran Inj) 4 mg NOW STAT IV 01/19/17 12:18 01/19/17 12:20 DC 01/19/17 13:25 4 MG Sodium Chloride 1,000 ml @ 999 mls/hr Q1H1M STAT IV 01/19/17 12:18 01/19/17 13:18 DC 01/19/17 13:20 999 MLS/HR Lidocaine HCl (Viscous Lidocaine 2% Soln) 10 ml NOW STAT PO 01/19/17 15:32 01/19/17 15:34 DC 01/19/17 15:32 10 ML Al Hydroxide/Mg Hydroxide (Maalox Susp) 30 ml NOW STAT PO 01/19/17 15:32 01/19/17 15:33 DC 01/19/17 15:32 30 ML ECG Indication: abdominal pain Rate (beats per minute): 74 Rhythm: normal sinus Findings: no acute ischemic change, no ectopy ED Course 1209: The patient was evaluated in room B9. A complete history and physical exam was performed. 1218: Ordered Sodium Chloride 1000 ml @ 999 mls/hr IV, Zofran Inj 4 mg IV, Morphine Sulfate 4 mg IV 1335: After receiving the morphine, the patient complains of a pulling sensation in her head. 1532: At this time, we discussed her results. The patient now has epigastric abdominal pain without guarding. Ordered Maalox Susp 30 ml PO, Lidocaine HCl 10 ml PO 1657: She now has no pain or tenderness. She will be given Prilosec prescription. 1710: Upon reevaluation, the patient appeared to have improvement of her symptoms. I discussed tonight's findings with her. She verbalized agreement of the treatment plan. She was discharged home. Medical Decision This is a 21-year-old female who presents with right upper quadrant abdominal pain. Differential diagnosis includes pulmonary embolism, DVT, pneumonia, pleurisy, abscess. I did perform a limited focused review of portions of the patient's old chart on the electronic medical record. The patient was seen here in August of this year for abdominal pain. She received a CT scan that revealed diffuse colitis. She was also positive for C-Diff and placed on Flagyl. She was also noted to have stones in her gallbladder. I did evaluate the patient as noted above. The patient is presenting with right upper quadrant and rib pain starting last night. It is sharp. It is reproducible with movement and palpation of her ribs as well as her abdomen. I did wish to rule out any occult patient's from her surgery or a pulmonary embolism. IV access was established. The patient was placed on a continuous director of sales marketing. I did treat her with IV morphine and Zofran. She was also given normal saline IV. I did order and personally review the patient's 12- lead EKG urinalysis is unremarkable. Urine test is negative. As described above. I did order and review the patient's blood work as noted in the electronic medical record. Her white blood cell count is not elevated. LFTs and lipase are within normal limits. I did order a CT of the chest, abdomen and pelvis. I did review the images myself as well as the radiology report as described above. The patient has no evidence of pulmonary embolism although the contrast bolus was suboptimal. There is no evidence of acute intra -abdominal process. I did reassess the patient. She is feeling better but now has mostly epigastric pain and tenderness. I did treat her with a GI cocktail. I did order Doppler ultrasounds of lower extremities is the patient complained of some swelling to her legs. The ultrasound did not show any evidence of DVT in the lower legs. Upon reevaluation the patient states that her pain is completely resolved. She has no tenderness chief feeling much better after the GI cocktail. At this time her symptoms seem most consistent with some type of peptic ulcer disease. I did discuss the results with the patient. She was given a prescription for Prilosec and advised follow closely with her doctor. She was given return instructions as outlined below. Medication Reconcilliation Current Medication List: was personally reviewed by me Blood Pressure Screening Patient's blood pressure: Elevated blood pressure Blood pressure disposition: Elevated BP felt to be situational Impression Primary Impression: Upper abdominal pain Scribe Attestation The scribe's documentation has been prepared under my direct and personally reviewed by me in its entirety. I confirm that the note above accurately reflects all work, treatment, procedures, and medical decision making performed by me. Departure Information Dispostion Home / Self-Care Prescriptions Omeprazole (PRILOSEC) 20 Mg Cap 1 CAP PO DAILY for 30 Days, #30 CAP 5 Refills Prov: Terrance Das M.D. 01/19/17 Referrals Ro Ronquillo D.O. Forms HOME CARE DOCUMENTATION FORM, IMPORTANT VISIT INFORMATION Patient Instructions ED Abdominal Pain Unkn Cause, My [facility] Additional Instructions You have been examined and treated today on an emergency basis only. This is not a substitute for, or an effort to provide, complete comprehensive medical care. It is impossible to recognize and treat all injuries or illnesses in a single emergency department visit. It is therefore important that you follow up closely with your physician. Call as soon as possible for an appointment. Return for worsening symptoms or if you develop fever, black or tarry stools, vomiting, or any other concerning symptoms.
== END 2017-01-19 17:08 | disposition home or self-care (01) ==
LOC: C.EDB 11:32
DX: R10.11 Right upper quadrant pain (principal); R06.02 Shortness of breath; R00.2 Palpitations; K59.00 Constipation, unspecified; R00.0 Tachycardia, unspecified

== ENCOUNTER → 2017-09-17 | Outpatient (CLI) | payer BC ==
[~2017-09-17] MED LIST changes: -AMOX875T PO; -FLUT0.15 NAE; +OMEP20CA9 PO
--- NOTE | 2017-09-17 11:12 | DIAGNOSTIC IMAGING REPORT ---
L FINGER(S) MIN 2 VIEWS ROUTINE CLINICAL HISTORY: 21 years-old Female presenting with S60.012A Contusion of left thumb Left Thumb, 1 st [id number]. TECHNIQUE: Frontal, oblique, and lateral views of the left first finger were obtained. COMPARISON: None. FINDINGS: No acute fracture or malalignment. No advanced degenerative change. No radiographic soft tissue abnormality. IMPRESSION: No acute osseous injury. Electronically signed by: Tripp Rucker M.D. 09/17/2017 11:10 AM Dictated Date/Time: 09/17/2017 11:09 AM
== END | disposition home or self-care (01) ==
LOC: C.RAD1850 10:53
PROVIDERS: ATTEND Nurse Practitioner Family
DX: S60.012A Contusion of left thumb without damage to nail, initial encounter (principal); X58.XXXA Exposure to other specified factors, initial encounter